=== PATIENT | male | born 1995 | race Caucasian/White ===

== ENCOUNTER 2016-12-20 13:51 | Emergency (ER) | payer BC ==
[~2016-12-20] VITALS: Ht 182.9 cm; Wt 88.5 kg
[2016-12-20 13:55] VITALS: BP 148/90
--- NOTE | 2016-12-20 14:03 | NUR ---
Patient ambulated to bed 4.
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
[2016-12-20] MEDS ORDERED: KETOROLAC 60 MG/2 ML VIAL IM ONE (14:50)
[2016-12-20 15:05] VITALS: BP 143/81
--- NOTE | 2016-12-20 15:05 | NUR ---
Patient discharged with v/s stable. Written and verbal after care instructions given and explained. Patient alert, oriented and verbalized understanding of instructions. Ambulatory with steady gait. All questions addressed prior to discharge. ID band removed. Patient advised to follow up with PMD. Rx of MOTRIN & NORCO given. Patient educated on indication of medication including possible reaction and side effects. Opportunity to ask questions provided and answered.
== END 2016-12-20 15:05 | disposition home or self-care (01) ==
LOC: MED 13:51
DX: M79.642 Pain in left hand (principal); M54.2 Cervicalgia
CPT/HCPCS: 73130; 96372; 99284; J1885